=== PATIENT | female | born 2000 | race Caucasian/White ===

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

== ENCOUNTER 2018-11-16 19:57 | Emergency (ER) | payer OTHER ==
[2018-11-16 20:04] VITALS: BP 127/93; PULSE 82; TEMP 98.5; BMI 28.3
[2018-11-16] MEDS ORDERED: KETOROLAC TROMETHAMINE 60 MG/2 ML VIAL IM ONE (21:05)
[2018-11-16] MEDS ORDERED: cloNIDine HCL 0.1 MG TABLET PO ONE (21:05)
--- NOTE | 2018-11-17 00:34 | PDOC ---
Documentation entered by Sharon Paz SCRIBE, acting as scribe for Maria Teresa Bauer MD. Maria Teresa Bauer MD: This documentation has been prepared by the [place], SCRIBE, under my direction and personally reviewed by me in its entirety. I confirm that the documentation accurately reflects all work, treatment, procedures, and medical decision making performed by me. History of Present Illness - General Chief Complaint: Rash Stated Complaint: RASH X 2 WEEKS Time Seen by Provider: 11/16/18 20:05 History Source: Patient, Parent(s) Exam Limitations: No Limitations - History of Present Illness Initial Comments: 11/16/18 21:03 The patient is a 18 year old female with no past medical history who presents to the emergency department for evaluation rash. Patient reports rash on abdomen with associated redness and itchiness for 2 weeks. She reports the rash radiating to her upper extremities bilaterally as well as her right flank which started recently. Patient notes she has been itching her abdomen and her arms frequently over the last two weeks. Denies blistering, ulcerations or gingival bleeding. Denies taking any new medications or over the counter medications. She notes she has been experiencing irritation wearing a waist athletic trainer/corset at the gym since the onset of her rash. The patient denies chest pain, shortness of breath, headache, and dizziness. Denies fever, chills, nausea, vomiting, or any bladder/bowel symptoms. Allergies: No known allergies. Social History: No reported EtOH, cigarette, or drug use. Surgical History: left ankle ligament repair surgery PCP: Not on staff, [facility] Past History - Past Medical History Allergies/Adverse Reactions: Allergies Allergy/AdvReac Type Severity Reaction Status Date / Time No Known Allergies Allergy Verified 11/16/18 19:58 Home Medications: Ambulatory Orders Terbinafine HCl [Antifungal] 1 gm TP BID #1 tube 11/16/18 Anemia: No Asthma: No Cancer: No Cardiac Disorders: No CVA: No COPD: No CHF: No Dementia: No Diabetes: No GI Disorders: No Disorders: No HTN: No Hypercholesterolemia: No Liver Disease: No Seizures: No Thyroid Disease: No - Immunization History Td Vaccination: Yes Immunization Up to Date: Yes - Suicide/Smoking/Psychosocial Hx Smoking Status: No Smoking History: Former smoker Have you smoked in the past 12 months: No Number of Cigarettes Smoked Daily: 6 If you are a former smoker, when did you quit?: 1 YEAR Information on smoking cessation initiated: No 'Breaking Loose' booklet given: 06/28/17 Hx Alcohol Use: Yes (OCCAS.) Drug/Substance Use Hx: No Substance Use Type: None Hx Substance Use Treatment: No Review of Systems - Review of Systems Able to Perform ROS?: Yes Comments:: 11/16/18 21:03 All systems are reviewed and negative except as noted in the HPI. *Physical Exam - Vital Signs Last Vital Signs Temp Pulse Resp BP Pulse Ox 98.5 F 82 16 127/93 100 11/16/18 20:00 11/16/18 20:00 11/16/18 20:00 11/16/18 20:00 11/16/18 20:00 - Physical Exam Comments: 11/16/18 21:03 GENERAL: The patient is awake, alert, and fully oriented, in no acute distress. HEAD:Normal with no signs of trauma. EYES: Pupils equal, round and reactive to light, extraocular movements intact, sclera anicteric, conjunctiva clear. EXTREMITIES: Normal range of motion, no edema. NEUROLOGICAL: Normal speech, normal gait. PSYCH: Normal mood, normal affect. SKIN: non blanching, non tender, erythematous, fine macular papular rash,of b/l upper abdomen, b/l antecubital region extending to right flank area. (+)Widely scattered non palpable small ecchymotic areas of b/l upper extremities Progress Note - Progress Note Progress Note: As noted above, this 18-year-old woman presents with a pruritic rash that started in the upper abdomen/lower chest area and spread to the right flank and bilateral antecubital regions over the last week. No previous history of this type of rash. Of note, the patient works out in a gym on a daily basis. Exam as noted. Rash most consistent with tinea corporis. The patient will be treated with Terbinafine cream to be applied to the rash twice a day for 3 weeks (prescription sent to her pharmacy). She should follow- up with her general medical doctor within the next 5 days. If she has worsening of the rash she should follow-up with her PMD sooner or return to the ER. *DC/Admit/Observation/Transfer Diagnosis at time of Disposition: Tinea corporis - Discharge Dispostion Disposition: HOME Condition at time of disposition: Stable - Prescriptions Prescriptions: Terbinafine HCl [Antifungal] 1 gm TP BID #1 tube - Referrals - Patient Instructions Printed Discharge Instructions: DI for Tinea Corporis Additional Instructions: Terbinafine cream twice a day for 3 weeks Keep area of the rash clean and dry Follow-up with your doctor within the next 5 days, as discussed Return to ER if you have more severe rash - Post Discharge Activity
== END 2018-11-16 21:16 | disposition home or self-care (01) ==
LOC: FER 19:57
DX: B35.4 Tinea corporis (principal); Z87.891 Personal history of nicotine dependence
CPT/HCPCS: 99281-25

== ENCOUNTER 2021-09-01 17:42 | Emergency (ER) | payer OTHER ==
[2021-09-01 18:16] VITALS: BP 122/83; PULSE 85; TEMP 98.1; BMI 36.1
[2021-09-01 18:43] LABS: HEMATOCRIT 38.1 % (32.4-45.2); HEMOGLOBIN 13.5 G/dL (10.7-15.3); MCH 29.2 pg (25.7-33.7); MCHC 35.5 g/dl (32.0-36.0); MEAN CELL VOLUME 82.2 fl (80-96); MEAN PLT VOLUME 8.9 fl (7.5-11.1); PLATELET COUNT 375.9 10^3/uL (134-434); RBC 4.63 10^6/uL (3.60-5.2); WHITE BLOOD COUNT 8.2 10^3/uL (4.0-10.8)
[2021-09-01 18:46] LABS: HCG,QUALITATIVE URINE Negative
[2021-09-01 18:50] LABS: CALCIUM 9.3 mg/dl (8.5-10); CREATININE 0.8 mg/dl (0.55-1.3)
[2021-09-01 18:53] LABS: ALBUMIN 3.7 g/dl (3.4-5.0); BILIRUBIN,TOTAL 0.5 mg/dl (0.2-1)
== END 2021-09-01 19:28 | disposition home or self-care (01) ==
LOC: SUPCPDRO 17:42 → FER 17:42
DX: R19.7 Diarrhea, unspecified (principal)
CPT/HCPCS: 36415; 80053; 81003; 83690; 84703; 87086; 87491; 87591; 99283-25

== ENCOUNTER 2021-12-03 21:22 | Emergency (ER) | payer OTHER ==
[2021-12-03 21:32] VITALS: BP 134/96; PULSE 73; RESP 17; TEMP 98.6; BMI 32.3
[2021-12-03] MEDS ORDERED: MECLIZINE HCL 25 MG TABLET (FP) PO ONE (21:47)
[2021-12-03] MEDS ORDERED: ONDANSETRON *ODT* 4 MG TABLET SL ONE (21:47)
[2021-12-03] MEDS ORDERED: SODIUM CHLORIDE 1,000 ML IV ONE (21:51)
[2021-12-03] MEDS ORDERED: MECLIZINE HCL 25 MG TABLET (FP) ONE (22:00)
[2021-12-03] MEDS ORDERED: ONDANSETRON *ODT* 4 MG TABLET ONE (22:01)
[2021-12-03 22:15] LABS: HEMATOCRIT 41.1 % (32.4-45.2); HEMOGLOBIN 14.4 G/dL (10.7-15.3); MCH 29.6 pg (25.7-33.7); MCHC 34.9 g/dl (32.0-36.0); MEAN CELL VOLUME 84.8 fl (80-96); MEAN PLT VOLUME 8.9 fl (7.5-11.1); PLATELET COUNT 423.4 10^3/uL (134-434); RBC 4.85 10^6/uL (3.60-5.2); RDW 15.8 % (11.6-15.6); WHITE BLOOD COUNT 14.4 10^3/uL (4.0-10.8)
[2021-12-03 22:32] LABS: BILIRUBIN,TOTAL 0.7 mg/dl (0.2-1); CALCIUM 9.4 mg/dl (8.5-10); CREATININE 0.7 mg/dl (0.55-1.3); TOT PROT 7.2 g/dl (6.4-8.2)
== END 2021-12-03 23:16 | disposition home or self-care (01) ==
LOC: FER 21:22
PROC: 3E0337Z Introduction of Electrolytic and Water Balance Substance into Peripheral Vein, Percutaneous Approach (ICD-10-PCS; principal; 2021-12-03)
DX: R42 Dizziness and giddiness (principal)
CPT/HCPCS: 36415; 70450-TC; 80053; 81025; 85027; 99285-25; Q0162

== ENCOUNTER 2022-03-31 00:43 | Emergency (ER) | payer OTHER ==
[2022-03-31] MEDS ORDERED: SODIUM CHLORIDE 0.9% 500 ML INFUS.BAG IV ONE (00:45)
[2022-03-31 00:47] VITALS: BP 139/90; PULSE 86; RESP 18; TEMP 98; BMI 32.3
[2022-03-31 01:53] LABS: BASO % 0.6 % (0-2.0); EOS % 1.1 % (0-4.5); HEMATOCRIT 39.8 % (32.4-45.2); HEMOGLOBIN 13.1 GM/dL (10.7-15.3); LYMPH % 33.3 % (8-40); MCH 27.9 pg (25.7-33.7); MCHC 32.8 g/dl (32.0-36.0); MEAN CELL VOLUME 85.1 fl (80-96); MONO % 7.8 % (3.8-10.2); NEUT % 57.2 % (42.8-82.8); PLATELET COUNT 383 10^3/uL (134-434); RBC 4.68 M/mm3 (3.60-5.2); RDW 14.8 % (11.6-15.6)
[2022-03-31 01:54] LABS: URINE APPEARANCE CLEAR; URINE BILIRUBIN NEGATIVE (NEGATIVE); URINE COLOR YELLOW; URINE GLUCOSE (UA) NEGATIVE (NEGATIVE); URINE KETONE NEGATIVE (NEGATIVE); URINE LEUK ESTERASE NEGATIVE (NEGATIVE); URINE NITRITE NEGATIVE (NEGATIVE); URINE PROTEIN NEGATIVE (NEGATIVE)
[2022-03-31 02:16] LABS: CHLORIDE 106 mmol/L (98-107); SODIUM 141 mmol/L (136-145)
[2022-03-31 02:18] LABS: ALBUMIN 3.7 g/dl (3.4-5.0); ANION GAP 5 MMOL/L (8-16); BLOOD UREA NITROGEN 11.4 mg/dL (7-18); CALCIUM 9.2 mg/dL (8.5-10.1); CO2 29 mmol/L (21-32); GLUCOSE,RANDOM 89 mg/dL (74-106)
[2022-03-31 02:21] LABS: CREATININE 0.7 mg/dL (0.55-1.3); SGOT/AST 17 U/L (15-37); SGPT/ALT 18 U/L (13-61)
[2022-03-31 02:23] LABS: BILIRUBIN,TOTAL 0.4 mg/dL (0.2-1)
[2022-03-31 02:24] LABS: ALK PHOS 58 U/L (45-117)
== END 2022-03-31 02:52 | disposition home or self-care (01) ==
LOC: FER 00:43
DX: K52.9 Noninfective gastroenteritis and colitis, unspecified (principal)
CPT/HCPCS: 36415; 80053; 81003; 84702; 85025; 99283-25